=== PATIENT | male | born 1990 | race Caucasian/White ===

== ENCOUNTER 2020-02-21 10:45 | Emergency (ER) | payer BC ==
--- NOTE | 2020-02-21 12:06 | ER Document Report ---
ED General - General Chief Complaint: Drug Abuse Stated Complaint: WITHDRAWAL Time Seen by Provider: 02/21/20 11:43 Primary Care Provider: MARGE GUDINO [Primary Care Provider] - Follow up as needed - HPI Notes: Chief complaint: Withdrawal from Xanax and Suboxone History of present illness: 29-year-old male with past history of abuse of IV opiates more than 5 years ago states that he has been abstaining from such agents for this period of time was recently in an inpatient drug detox facility in [facility] and since he left the facility he is run out of the medications he was being treated with and now has severe withdrawal symptoms. Patient says he has been in detox in multiple locations in the past. He notes that the [facility] government close down the detox facility where he was in [facility] about 2 weeks ago. He was sent out with a temporary supply of Suboxone and Xanax. He is now been out of the medications for several days and complains of "feeling bad all over" experiencing nausea without vomiting, muscle cramping, diaphoresis and intermittent confusion/disorientation. He denies any seizures. He denies any auditory or visual hallucinations. He denies any desire to harm himself or others. States that he has been consuming about 2 mixed drinks a day containing vodka but denies abuse of alcohol. He denies any current use of street drugs. States that he had a COVID test while he was in a detox facility in [place] but was never given the results of the test. He denies any known exposure to COVID. - Related Data Allergies/Adverse Reactions: No Known Allergies Allergy (Unverified 02/21/20 11:50) Past Medical History - General Information source: Patient - Social History Smoking Status: Former Smoker Frequency of alcohol use: Social Drug Abuse: Other - As per HPI Family History: Reviewed & Not Pertinent Review of Systems - Review of Systems Notes: Constitutional: Negative for fever. HENT: Negative for sore throat. Eyes: Negative for visual changes. Cardiovascular: Negative for chest pain. Respiratory: Negative for shortness of breath. Gastrointestinal: As per HPI. Genitourinary: Negative for dysuria. Musculoskeletal: As per HPI. Skin: Negative for rash. Neurological: As per HPI. 10 point ROS negative except as marked above and in HPI. Physical Exam - Vital signs Vitals: Temp 98.2 F 02/21/20 11:38 - Notes Notes: GENERAL: Somewhat unkempt male approximately stated age who appears mildly uncomfortable. SKIN: Mildly diaphoretic. Good turgor no rashes. Multiple superficial crusted excoriated areas on both lower legs. HEAD: Normocephalic atraumatic. EYES: PERRLA. EOMI. Conjunctivae and sclerae clear. EARS: CANALS AND TMS CLEAR. NOSE: CLEAR. MOUTH: Moist mucosa. Good dentition. No stridor or edema. No drooling. NECK: Supple. No masses or thyromegaly. No adenopathy. Carotids 2+ without bruits. No JVD. BACK: Symmetrical without tenderness. CHEST: Respirations unlabored. Breath sounds clear and symmetrical. HEART: Regular rhythm. No murmur gallop or rub. ABDOMEN: Soft nontender without masses, organomegaly or rebound. Bowel sounds normally active. No bruits. GENITALIA: Deferred. EXTREMITIES: No edema. No calf tenderness. Cap refill less than 1.5 seconds. Dorsalis pedis and posterior tibial pulses 3+ and symmetrical. NEUROLOGICAL: GCS 14. Mild generalized tremor. Alert and oriented to person, place, month and year but not to day. Normal gait. Fluent speech. Cranial nerves II through XII intact. Sensorimotor and cerebellar normal. Normal tone. PSYCHIATRIC: Mildly anxious affect. Course - Re-evaluation Re-evalutation: 02/21/20 14:17 Mild benzodiazepine withdrawal. Symptoms improved with oral Ativan here. Medically cleared for Behavioral Medicine evaluation. 02/21/20 18:45 Patient has been evaluated by the behavioral medicine team. Dr. Johnson has car efully reviewed this gentleman's pharmacy records and it would appear that he received a prescription for Xanax earlier this month should carry him through another 2 weeks. She is concerned that the patient is either overusing the medication or diverting it and recommends that we not provide any additional prescriptions through the ED at this time. We have provided appropriate resources for outpatient follow-up and the patient is to be discharged. Findings, clinical impression and plan of treatment have been discussed with patient/family. Understanding of current findings and recommendations has been acknowledged by them and there is agreement regarding disposition and follow-up. - Vital Signs Vital signs: Temp Pulse Resp BP Pulse Ox 98.2 F 72 16 132/72 H 100 02/21/20 12:00 02/21/20 11:39 02/21/20 11:39 02/21/20 11:39 02/21/20 11:39 - Laboratory Result Diagrams: 02/21/20 12:20 02/21/20 12:20 Laboratory results interpreted by me: 02/21/20 02/21/20 12:20 12:20 Glucose 131 H Urine Ketones TRACE H Discharge - Discharge Clinical Impression: Polysubstance abuse Disposition: HOME, SELF-CARE Additional Instructions: Follow-up with outpatient mental health provider as directed. Referrals: LOCALMD,NO [Primary Care Provider] - Follow up as needed
[2020-02-21] MEDS: LORAZEPAM 1 MG TABLET PO SCH ×3 (12:31→18:11)
[2020-02-21 12:38] LABS: ABSOLUTE LYMPHOCYTES (AUTO) 1.7 10^3/uL (0.5-4.7); ABSOLUTE MONOCYTES (AUTO) 0.5 10^3/uL (0.1-1.4); ABSOLUTE NEUT (AUTO) 8.2 10^3/uL (1.7-8.2); BASOPHILS % (AUTO) 0.4 % (0-2); EOSINOPHILS % (AUTO) 0.3 % (0-6); HEMATOCRIT 43.9 % (37.9-51.0); HEMOGLOBIN 15.3 g/dL (13.5-17.0); LYMPHOCYTES % (AUTO) 16.5 % (13-45); MEAN CORPUSCULAR HEMOGLOBIN 31.2 pg (27.0-33.4); MEAN CORPUSCULAR HGB CONC 34.8 g/dL (32.0-36.0); MEAN CORPUSCULAR VOLUME 90 fl (80-97); MONOCYTES % (AUTO) 5.1 % (3-13); PLATELET COUNT 297 10^3/uL (150-450); RED CELL DISTRIBUTION WIDTH 13.2 % (11.5-14.0); SEGMENTED NEUTROPHILS % (AUTO) 77.7 % (42-78); TOTAL CELLS COUNTED % (AUTO) 100 %; WHITE BLOOD COUNT 10.5 10^3/uL (4.0-10.5)
[2020-02-21 12:55] LABS: ALBUMIN 4.9 g/dL (3.5-5.0); ALKALINE PHOSPHATASE 91 U/L (38-126); ANION GAP 9 (5-19); ASPARTATE AMINO TRANSFERASE 32 U/L (17-59); BILIRUBIN,DIRECT 0.3 mg/dL (0.0-0.4); BILIRUBIN,TOTAL 0.5 mg/dL (0.2-1.3); BLOOD UREA NITROGEN 11 mg/dL (7-20); CALCIUM 9.9 mg/dL (8.4-10.2); CARBON DIOXIDE 26 mmol/L (22-30); CHLORIDE 102 mmol/L (98-107); GLUCOSE 131 mg/dL (75-110); TOTAL PROTEIN 8.2 g/dL (6.3-8.2)
[2020-02-21 13:00] LABS: ALCOHOL < 10 mg/dL (NONE DETECTED)
[2020-02-21 13:01] LABS: APPEARANCE,URINE CLEAR; BILIRUBIN,URINE NEGATIVE (NEGATIVE); COLOR,URINE YELLOW; GLUCOSE, URINE NEGATIVE (NEGATIVE); KETONES,URINE TRACE mg/dL (NEGATIVE); PROTEIN,URINE NEGATIVE (NEGATIVE); URINE SPECIFIC GRAVITY 1.021; UROBILINOGEN,URINE NEGATIVE mg/dL (<2.0)
[2020-02-21 13:43] LABS: URINE AMPHETAMINES SCREEN NEGATIVE; URINE BARBITURATES SCREEN NEGATIVE; URINE COCAINE SCREEN NEGATIVE; URINE METHADONE SCREEN NEGATIVE; URINE PHENCYCLIDINE SCREEN NEGATIVE
[2020-02-21 13:44] LABS: URINE BENZODIAZEPINES SCREEN UNCONFIRMED POSITIVE; URINE MARIJUANA (THC) SCREEN UNCONFIRMED POSITIVE
--- NOTE | 2020-02-21 17:12 | EKG REPORT ---
SEVERITY:- NORMAL ECG - SINUS RHYTHM : Confirmed by: Autumn Sullivan MD 21-Feb-2020 17:10:50
[2020-02-21 18:55] VITALS: BP 147/81
--- NOTE | 2020-02-22 20:43 | PSYCHOLOGICAL NOTE ---
Psych Note - Psych Note Date seen by psych provider: 02/21/20 Time seen by psych provider: 17:38 - Collateral and discussion with ED Physician at 1738. Evaluation with patient from [id number]. Collateral and contact with mother about plan of care at 1834. Psych Note: Patient is a 29 year old male who presented to the Emergency Department this morning via privately owned vehicle/mother for substance abuse, withdrawal (benzos, opiates), and desire for detoxification. Urine drug screen positive for benzos and cannabis. Attending ED Physician reported patient noted 5-10 years of Intravenous drug use, no IV opiate use in the past 5 years, having been to multiple det ox/treatment facilities, was recently inpatient in [facility] but [employer] Government shut it down, they gave him Xanax 20MG four times a day and Suboxone, and now patient has been out of medications so withdrawing. He noted patient has family in [facility] so made his way back to [place]. He identified patient tried to act disoriented with him but after rapid firing questions and patient resp onding it was clear he was linear. He stated patient denied suicidal and homicidal ideation and no observed psychosis. He stated patient noted drinking 2 mixed drinks a day and Serum Alcohol Level is <10. He noted patient had oral Ativan twice. [place] Controlled Database noted patient had Xanax 2MG three times a day 90 tabs filled 02/03/2020, prescribed by Wilbert Ro in [facility] so should have 12 days left. On 01/23/2020 he had Xanax 1MG (42 pills, enough for 7 days) filled by [facility] in [place]. The last time he had Suboxone prescribed was 2017. And also listed was Testosterone micronized powder while in [place] 12/21/2019. He hasn't had any pain medications prescribed since 2016. Patient reported the [place] facility gave him Sublicade injection. He admitted he used the last of Suboxone he had yesterday morning. He admitted he does not have any Xanax left even though he should have 12 days worth left. He stated "I don't want to take Xanax anymore and I think the opiate withdrawal is worse since it was an injection." He was at first sitting in bed and when talk about going to detox he started getting up and fidgeting. Patient stated "can't I just be discharged to my mother with Valium or something for the sweats." He asked for medication to help him and was made aware he already had two doses of Ativan, benzos would not be prescribed from the ED setting since not ongoing providers, ED cannot prescribe Suboxone due to only certain providers allowed to prescribed it and again the need for ongoing professional monitoring. Encouraged him to utilize [facility] but noted all facilities are out of state. He did not seem interested in out of state. Mentioned [facility]. Patient then made a call on his cell phone to [facility] (already had number in phone) and he said "I need benzo and opiate medical detox, I am at [facility] ER, I have been there before." He said they needed COVID testing which he was informed would likely take 3 days for results. Had given the mental health and substance abuse resource sheets. Patient then called [facility]. Patient was alert and oriented to self, person, place, time and situation. Mood was euthymic with congruent affect until talk about discharge and needing to go to detox. He denied current suicidal and homicidal ideation. Patient did not appear to be responding to internal stimuli as evidenced by fair eye contact, answering questions appropriately when addressed and taking active involvement in obtaining detox via making phone calls to [facility] and [facility]. Thought processes were linear and organized. Conversational speech was within normal limits for rate, tone and prosody. Intellectual abilities are estimated to be average. Insight, judgment and impulse control were fair as evidenced by taking active involvement in obtaining detox by calling facilities from his cell phone. At 1834 called patient's mother Sondra Masterson ([phone]). Patient gave verbal consent to call her and provided contact information. She was made aware of plan of care. She confirmed patient was at [facility] 2 other times. She stated he is out of Xanax and noted she had to bring him to ED a couple days ago for OD due to overuse (had taken more Xanax than prescribed, slept for 16 hours, was disoriented and difficult to arouse so she called --, patient got made when he saw police thiinking mother called them on him so he took the rest of the Xanax he had left). She stated he has been on Suboxone for 3 years and mentioned the injection the [facility] gave. She commented how she thought Suboxone was something that is weened off and was psychoeducated on that treatment modality/intervention. She also mentioned multiple treatments and commented on 2 years ago he put himself into a facility in [place]. She stated "he has not been clear in years." Mother reported "his thyroid is probably and issue, he's gained 100 pounds in short time, he needs Primary Care." Clinical Presentation: Polysubstance use/misuse (opioids, benzos) patient concerns for withdrawal Desire for detoxification Impression/Plan: Patient is cleared from acute psychiatric services. He denied suicidal and homicidal ideation. No observed psychosis. Provided both the mental health and substance abuse resource sheets. Encouraged contacting [facility]. Patient contacted [facility] and [facility]. Mother aware of plan and resources provided. Consulted with Dr. Johnson regarding the management and care of patient. ED Physician in agreement with recommendations.
== END 2020-02-21 19:24 | disposition home or self-care (01) ==
LOC: ER 10:45
DX: F19.10 Other psychoactive substance abuse, uncomplicated (principal); F15.93 Other stimulant use, unspecified with withdrawal; R11.0 Nausea; Z87.891 Personal history of nicotine dependence
CPT/HCPCS: 36415; 80053; 80307; 81001; 85025; 93005; 93010; 99284